=== PATIENT | male | born 2000 | race Caucasian/White ===

== ENCOUNTER 2020-02-02 22:51 | Emergency (ER) | payer OTHER ==
[~2020-02-02] VITALS: Ht 182.9 cm; Wt 98.6 kg
[2020-02-02 22:55] VITALS: Ht 182.9 cm; Wt 98.6 kg
[2020-02-02 23:35] VITALS: BP 120/72
== END 2020-02-02 23:35 | disposition home or self-care (01) ==
LOC: D.ER 22:51
DX: S00.212A Abrasion of left eyelid and periocular area, initial encounter (principal); S01.112A Laceration without foreign body of left eyelid and periocular area, initial encounter

== ENCOUNTER → 2020-02-13 14:26 | Outpatient (CLI) | payer OTHER ==
[2020-02-02 22:55] VITALS: BMI 29.5
--- NOTE | 2020-02-13 15:21 | NUR ---
PT TIME OUT WAS PERFORMED AT 1520HRS FOR A RT SHOULDER ARTHROGRAM
== END | disposition home or self-care (01) ==
LOC: D.RAD 14:26
PROVIDERS: ATTEND Clinical Nurse Specialist Family Health
DX: M25.511 Pain in right shoulder (principal)

== ENCOUNTER 2020-09-14 20:03 | Emergency (ER) | payer OTHER ==
[~2020-09-14] VITALS: Ht 182.9 cm; Wt 95.5 kg
[~2020-09-14 20:03] MED LIST: HYDROCODON-ACE1 EA10 PO
[2020-09-14 20:05] VITALS: Ht 182.9 cm; Wt 95.5 kg
[2020-09-14 20:27] LABS: BASOPHILS 0.4 % (0-2); EOSINOPHILS 1.6 % (0-7); HEMATOCRIT 41.5 % (42.0-54.0); HEMOGLOBIN 14.2 g/dL (13.5-17.5); IMMATURE GRANULOCYTES 0.1 % (0-5); LYMPHOCYTE ABS# 1.94 10x3/uL (1.32-3.57); MCH 30.9 pg (26.0-34.0); MCHC 34.2 g/dL (31.0-37.0); MCV 90.2 fL (80.0-100.0); MONOCYTES 5.9 % (2-11); NEUTROPHIL ABS# 5.51 10x3/uL (1.78-5.38); PLATELET COUNT 226 10x3/uL (130-400); RDW 12.6 % (11.5-14.5); WBC 8.1 10x3/uL (4.8-10.8)
[2020-09-14 20:45] LABS: CALC OSMOLALITY 284 mosm/kg (275-300); CALCIUM 8.8 mg/dL (8.5-10.1); CARBON DIOXIDE 25.8 mmol/L (21.0-32.0); CHLORIDE - SERUM 107 mmol/L (98-107); GLUCOSE 95 mg/dL (74-106); POTASSIUM - SERUM 3.7 mmol/L (3.5-5.1); SODIUM 143 mmol/L (136-145); UREA NITROGEN 12 mg/dL (7-18); eGFR NON AFRICAN AMERICAN > 90 mL/min (90-120)
[2020-09-14 20:53] LABS: ALBUMIN 3.6 g/dL (3.4-5.0); ALKALINE PHOSPHATASE 80 U/L (30-120); ALT (SGPT) 39 U/L (10-68); BILIRUBIN - TOTAL 0.43 mg/dL (0.2-1.3); PROTEIN - SERUM 6.5 g/dL (6.4-8.2); TROPONIN-I < 0.017 ng/mL (0.000-0.060)
[2020-09-14 21:36] VITALS: BP 137/77
== END 2020-09-14 21:35 | disposition home or self-care (01) ==
LOC: D.ER 20:03
PROVIDERS: Student in an Organized Health Care Education/Training Program
DX: R55 Syncope and collapse (principal)

== ENCOUNTER → 2020-10-02 09:02 | Outpatient (CLI) | payer OTHER ==
[2020-09-14 20:05] VITALS: BMI 28.5
== END | disposition home or self-care (01) ==
LOC: D.HCCECHO 09-24 10:30
PROVIDERS: ATTEND Internal Medicine Cardiovascular Disease
DX: R55 Syncope and collapse (principal)